=== PATIENT | male | born 1990 | race African-American/Black ===

== ENCOUNTER 2019-02-08 19:12 | Emergency (ER) | payer SELFPAY ==
[~2019-02-08] VITALS: Ht 183.5 cm; Wt 89.4 kg
--- NOTE | 2019-02-08 19:37 | NUR ---
ED Nurse Note: Pt ambulated to ED from home c/o N/D and abdominal pain x2days. Pt is A&Ox4. VSS.
[2019-02-08 19:38] VITALS: BP 144/71
[2019-02-08] MEDS ORDERED: Dicyclomine HCl 10mg/5ml oral soln ORAL ONE (19:45)
[2019-02-08] MEDS ORDERED: Lidocaine 2% Visc 15ml soln ORAL ONE (19:45)
[2019-02-08] MEDS ORDERED: Mylanta II UD 30ml ORAL ONE (19:45)
[2019-02-08] MEDS ORDERED: ONDANSETRON ODT4 MG BC (19:55)
[2019-02-08] MEDS ORDERED: RANITIDINE HCL150 MG ORAL (19:55)
[2019-02-08] MEDS ORDERED: DICYCLOMINE HCL10 MG ORAL (19:55)
[2019-02-08 20:00] VITALS: BP 144/71
--- NOTE | 2019-02-08 20:00 | NUR ---
ER DISCHARGE NOTE: Patient is cleared to be discharged per ERMD, pt is aox4, on room air, with stable vital signs. pt was given dc and prescription instructions, pt was able to verbalize understanding, pt id band and iv site removed without complications. pt is able to ambulate with steady gait. pt took all belongings. Addendum: 02/08/19 at 2006 by GLORIA pt did not have IV, no need for removal
--- NOTE | 2019-02-13 21:55 | Emergency Room Report ---
History of Present Illness General Chief Complaint: Abdominal Pain Source: Patient Present Illness HPI 28-year-old male presents ED for evaluation. States he has been feeling nausea vomiting and abdominal pain for the last 2 days. Started shortly after fast food. Pain is epigastric, burning, 5 out of 10, nonradiating. Had a few episodes of vomiting and one episode of diarrhea. Denies recent travel or recent antibiotic use. No other aggravating relieving factors. Denies any other associated symptoms Allergies: Coded Allergies: BUPROPION (Verified Allergy, Unknown, 02/08/19) Patient History Past Medical History: none Past Surgical History: none Pertinent Family History: none Social History: Denies: smoking, alcohol use, drug use Immunizations: UTD Reviewed Nursing Documentation: PMH: Agreed; PSxH: Agreed Nursing Documentation-PMH Past Medical History: No Stated History Review of Systems All Other Systems: negative except mentioned in HPI Physical Exam Sp02 EP Interpretation: reviewed, normal General Appearance: no apparent distress, alert, GCS 15, non-toxic Head: normocephalic, atraumatic Eyes: bilateral eye normal inspection, bilateral eye PERRL ENT: hearing grossly normal, normal pharynx, no angioedema, normal voice Neck: full range of motion, supple/symm/no masses Respiratory: chest non-tender, lungs clear, normal breath sounds, speaking full sentences Cardiovascular #1: regular rate, rhythm, no edema Cardiovascular #2: 2+ carotid (R), 2+ carotid (L), 2+ radial (R), 2+ radial (L) , 2+ dorsalis pedis (R), 2+ dorsalis pedis (L) Gastrointestinal: normal bowel sounds, non tender, soft, non-distended, no guarding, no rebound Rectal: deferred Genitourinary: normal inspection, no CVA tenderness Musculoskeletal: back normal, gait/station normal, normal range of motion, non- tender Neurologic: alert, oriented x3, responsive, motor strength/tone normal, sensory intact, speech normal Psychiatric: judgement/insight normal, memory normal, mood/affect normal, no suicidal/homicidal ideation Reflexes: 3+ bicep (R), 3+ bicep (L), 3+ tricep (R), 3+ tricep (L), 3+ knee (R) , 3+ knee (L) Lymphatic: no adenopathy Medical Decision Making Diagnostic Impression: Primary Impression: Gastroenteritis ER Course Hospital Course 28 yo M presents with abd pain with vomiting and diarrhea differential diagnosis: gastritis, SBO, cholecystits, gastroenteritis Clinical course Patient placed on stretcher. After initial history physical exam reveals male in no acute distress. Abdomen soft. No guarding or rebound. mucus membranes moist. Good capillary refill. Vitals stable. Discussed findings with patient. Likely gastroenteritis. Course is viral and self-limited. Patient declines IV access. Given p.o. Pepcid here, GI cocktail. On reassessment patient feels better. Will discharge to home. does not have a PMD. Will provide referrals I feel this is a highly complex case requiring extensive working including EKG/ Rhythm strip, Xray/CT/US, Blood/urine lab work, repeat exams while in ED, and administration of strong opiates/narcotics for pain control, admission to hospital or close patient follow up. Diagnosis - gastroenteritis Stable and discharged to home with prescriptions for Zantac, zofran, bentyl. Followup with PMD. Return to ED if symptoms recur or worsen Status: improved Disposition: HOME, SELF-CARE Condition: Stable Scripts Dicyclomine Hcl* (DICYCLOMINE HCL*) 10 Mg Capsule 10 MG ORAL QID, #20 CAP Prov: Fernando Lezama MD 02/08/19 Ondansetron Odt* (ZOFRAN ODT*) 4 Mg Tab.rapdis 4 MG BC EVERY 6 HOURS PRN for Nausea & Vomiting, #20 TAB 0 Refills Prov: Fernando Lezama MD 02/08/19 Ranitidine Hcl* (ZANTAC*) 150 Mg Tablet 150 MG ORAL TWICE A DAY, #30 TAB Prov: Fernando Lezama MD 02/08/19 Referrals: NOT CHOSEN IPA/,REFERRING (PCP) [facility] Patient Instructions: Viral Gastroenteritis, Adult, [id number] Fernando Lezama MD Feb 13, 2019 21:55
== END 2019-02-08 20:00 | disposition home or self-care (01) ==
LOC: EMR 19:37
DX: R10.9 Unspecified abdominal pain (principal); R19.7 Diarrhea, unspecified
CPT/HCPCS: 99282